=== PATIENT | female | born 1980 | race Native Hawaiian/Other Pacific Islander ===

== ENCOUNTER 2016-04-15 13:28 | Emergency (ER) | payer OTHER ==
[~2016-04-15] VITALS: Ht 180.3 cm; Wt 88.9 kg
[2016-04-15 13:46] VITALS: TEMP 98.4
[2016-04-15] MEDS ORDERED: ACET-689 PO (14:41)
[2016-04-15 14:50] VITALS: BP 130/86
== END 2016-04-15 14:50 | disposition home or self-care (01) ==
LOC: ED 13:28
DX: S80.01XA Contusion of right knee, initial encounter (principal); W19.XXXA Unspecified fall, initial encounter
CPT/HCPCS: 99283

== ENCOUNTER 2017-06-02 10:59 | Emergency (ER) | payer OTHER ==
[~2017-06-02] VITALS: Ht 175.3 cm; Wt 97.1 kg
[~2017-06-02 10:59] MED LIST: ACET-689 PO
[2017-06-02 11:07] VITALS: TEMP 98.6
[2017-06-02 12:24] VITALS: BP 124/78
== END 2017-06-02 12:24 | disposition home or self-care (01) ==
LOC: ED 10:59
DX: S46.091A Other injury of muscle(s) and tendon(s) of the rotator cuff of right shoulder, initial encounter (principal); X50.9XXA Other and unspecified overexertion or strenuous movements or postures, initial encounter; Y92.89 Other specified places as the place of occurrence of the external cause
CPT/HCPCS: 99281

== ENCOUNTER 2020-04-20 10:23 | Outpatient (CLI) | payer OTHER ==
[2020-04-20 10:42] LABS: PLATELET COUNT 249 K/uL (152-353)
[2020-04-20 11:13] LABS: POTASSIUM 4.1 mmol/L (3.6-5.2); SODIUM 138 mmol/L (136-145)
== END 2020-04-20 22:12 | disposition home or self-care (01) ==
LOC: LABW 10:23
PROVIDERS: ATTEND Family Medicine
DX: O09.299 Supervision of pregnancy with other poor reproductive or obstetric history, unspecified trimester (principal); D50.9 Iron deficiency anemia, unspecified; Z83.3 Family history of diabetes mellitus; F41.9 Anxiety disorder, unspecified
CPT/HCPCS: 36415; 80053; 80061; 81000; 83036; 84439; 84443; 84702; 85027

== ENCOUNTER 2021-03-16 15:58 | Emergency (ER) | payer OTHER ==
[~2021-03-16] VITALS: Ht 180.3 cm; Wt 136.1 kg
[2021-03-16 16:07] VITALS: BP 135/80; TEMP 97.5
[2021-03-16 16:45] LABS: PLATELET COUNT 196 K/uL (152-353)
[2021-03-16 16:53] LABS: POTASSIUM 3.1 mmol/L (3.6-5.2)
[2021-03-16 17:32] LABS: PARTIAL THROMBOPLASTIN TIME 24.1 SECONDS (24.5-33.6)
== END 2021-03-16 17:55 | disposition home or self-care (01) ==
LOC: ED 15:58
PROVIDERS: Hospitalist
DX: R25.2 Cramp and spasm (principal); Z3A.30 30 weeks gestation of pregnancy
CPT/HCPCS: 80048; 80307; 80320; 81000; 85027; 85610; 85730; 99284

== ENCOUNTER 2021-09-08 10:23 | Outpatient (CLI) | payer OTHER | END 2021-09-08 18:55 | disposition home or self-care (01) | LOC: MAMMO 10:23 | PROVIDERS: ATTEND Family Medicine | DX: Z12.31 Encounter for screening mammogram for malignant neoplasm of breast (principal) ==

== ENCOUNTER 2021-12-21 10:39 | Emergency (ER) | payer OTHER ==
[~2021-12-21] VITALS: Ht 180.3 cm; Wt 108.9 kg
[2021-12-21 10:40] VITALS: BP 112/81; TEMP 98.7
== END 2021-12-21 11:14 | disposition home or self-care (01) ==
LOC: ED 10:39
DX: S91.115A Laceration without foreign body of left lesser toe(s) without damage to nail, initial encounter (principal); W25.XXXA Contact with sharp glass, initial encounter; Y92.098 Other place in other non-institutional residence as the place of occurrence of the external cause
CPT/HCPCS: 99281

== ENCOUNTER 2022-07-17 17:53 | Emergency (ER) | payer OTHER ==
[~2022-07-17] VITALS: Ht 180.3 cm; Wt 101.2 kg
[2022-07-17 20:10] VITALS: BP 120/87; TEMP 98.4
== END 2022-07-17 20:10 | disposition home or self-care (01) ==
LOC: ED 17:53
DX: S93.401A Sprain of unspecified ligament of right ankle, initial encounter (principal); W01.0XXA Fall on same level from slipping, tripping and stumbling without subsequent striking against object, initial encounter; F17.210 Nicotine dependence, cigarettes, uncomplicated
CPT/HCPCS: 99283

== ENCOUNTER 2022-09-27 15:31 | Outpatient (CLI) | payer OTHER | END 2022-09-27 20:54 | disposition home or self-care (01) | LOC: MAMMO 15:31 | PROVIDERS: ATTEND Family Medicine | DX: Z12.31 Encounter for screening mammogram for malignant neoplasm of breast (principal) ==